=== PATIENT | female | born 1950 ===

== ENCOUNTER 2020-11-07 12:27 | Emergency (ER) | payer OTHER ==
[~2020-11-07 12:27] MED LIST: EPINEPHrine 1 MG/10 ML SYRINGE ONE; LIDOCAINE PF 100 MG/5 ML (CARDIAC SYRINGE) IV ONE
--- NOTE | 2020-11-07 12:48 | Emergency Department Report ---
HPI - General Time Seen by Provider: 11/07/20 12:37 - HPI HPI: Room 19 The patient is a 70-year-old female present with a chief complaint of cardiac arrest. Per EMS the patient's last known well time was 09:00 this morning. The patient was found later this morning unresponsive on the floor with blood coming from her mouth per EMS. EMS was called and arrived on scene at 11:56 to find the patient in asystole. Patient was intubated by EMS and ACLS protocols were initiated. Upon arrival to the ED ACLS protocols were continued but there was no return of spontaneous circulation ED Past Medical Hx - Surgical History Past Surgical History?: No - Family History Family history: no significant - Social History Smoking Status: Unknown if ever smoked ED Review of Systems ROS: Stated complaint: CARDIAC ARREST Other details as noted in HPI Comment: Unobtainable due to pts medical conditions Physical Exam - Physical Exam Physical Exam: GENERAL: The patient is well-developed well-nourished female being bagged via ET tube and receiving chest compressions by EMS. [] HEENT: Normocephalic. Atraumatic. NECK: Supple. Trachea midline CHEST/LUNGS: Breath sounds equally with bagging through ET tube. Blood present in ET tube HEART/CARDIOVASCULAR: No heart sounds. Asystole on monitor ABDOMEN: Abdomen is soft SKIN: There is no rash. There is no edema. There is no diaphoresis. NEURO: GCS 3 T MUSCULOSKELETAL: There is no evidence of acute injury. ED Medical Decision Making - Differential Diagnosis Cardiac arrest Critical care attestation.: If time is entered above; I have spent that time in minutes in the direct care of this critically ill patient, excluding procedure time. ED Disposition Clinical Impression: Cardiac arrest Disposition: DC-20 Is pt being admited?: No Does the pt Need Aspirin: No Condition: Poor Time of Disposition: 12:37 (Patient )
[2020-11-07] MEDS ORDERED: SODIUM BICARB 8.4% 50 MEQ/50 ML SYRINGE IV ONE (15:59)
== END 2020-11-07 16:30 ==
LOC: ED 12:27
DX: I46.9 Cardiac arrest, cause unspecified (principal)
CPT/HCPCS: 92950; 99285; J0171; J2001